=== PATIENT | female | born 2000 | race Caucasian/White ===

== ENCOUNTER 2022-06-15 15:28 | Observation (INO) ==
[2022-06-15 16:14] LABS: Basophils # (auto) 0.02 K/uL (0-0.2); Basophils % (auto) 0.2 %; Hematocrit (blood only) 33.1 % (37.0-47.0); Hemoglobin 10.9 g/dl (12.0-16.0); Immature Granulocytes # (auto) 0.03 K/uL (0.01-0.20); Immature Granulocytes % (auto) 0.3 %; Lymphocytes # (auto) 2.15 K/uL (1.2-3.4); Lymphocytes % (auto) 21.3 %; Mean Corpuscular Hemoglobin 29.9 pg (25.0-34.0); Mean Corpuscular Hgb Conc 32.9 g/dL (32.0-36.0); Mean Corpuscular Volume 90.7 fL (80.0-100.0); Mean Platelet Volume 9.3 fL (9.4-12.4); Monocytes # (auto) 0.89 K/uL (0.11-0.59); Monocytes % (auto) 8.8 %; Neutrophils # (auto) 6.99 K/uL (1.40-6.50); Neutrophils % (auto) 69.4 %; Platelet Count 260 K/uL (130-400); RDW Coefficient of Variation 13.6 % (11.5-14.5); RDW Standard Deviation 45.3 fL (36.4-46.3); Red Blood Count 3.65 M/uL (4.20-5.40); White Blood Count 10.08 K/ul (4.8-10.8)
[2022-06-15] MEDS ORDERED: AMPICILLIN/SULBACTAM SOD 3,000 MG in 0.9 % SODIUM CHLORIDE 100 ML IV STA (16:25)
[2022-06-15 16:29] LABS: BUN Creatinine Ratio 19.1 (10-20); Calcium 9.2 mg/dl (8.6-10.3); Creatinine Clr Calc Pharmacy 127.6 ml/min; Est GFR (African American) 145.9 ml/min; Est GFR (Non-African American) 125.9 ml/min; Potassium 4.3 mmol/L (3.5-5.1)
[2022-06-15] MEDS ORDERED: SODIUM CHLORIDE 0.9% 1000ML 1,000 ML IV SCH (16:34)
--- NOTE | 2022-06-15 16:34 | History & Physical Report ---
Date of Service June 15, 2022 Assessment & Plan (1) Odontogenic infection of jaw: Plan: 21-year-old female who presents with approximately 1 week of worsening right lower jaw pain, and inability to tolerate p.o. since last Thursday. She was seen by ENT who recommended extraction of wisdom teeth for odontogenic infection and medical admission pending surgery tomorrow. Pharyngitis, trismus, fever Patient presented with painful opening and closing of her right jaw, right mandibular swelling, and wisdom teeth eruption with severe pain and the inability to eat for 4 days. Based on high fevers and symptoms patient was initially recommended for tooth extraction and suspected periodontal abscess. CT as noted below. Shows evidence of nonspecific tonsillitis, no significant periodontal disease or abscess. With a high fever, inability to eat, and general malaise flu, Monospot, and rapid strep have been ordered. Patient requires inpatient admission for nutrition as she is volume depleted and I will be able to eat/drink at this time. Did discuss with OMFS and updated after CT resulted, agree with watching and steroids overnight due to significant swelling and following infectious work-up. OMFS will see in the morning and determine whether she should have teeth extraction at that time. CT: IMPRESSION: 1. No acute facial bone abnormality is identified. 2. No significant periodontal disease is seen. 3. Significant enlargement of the to nsils and adenoids with mild edema and mucosal hyperemia. Correlate clinically for evidence of a nonspecific tonsillitis. 4. Mildly enlarged cervical lymph nodes are likely reactive. Continue Unasyn pending completion of viral work-up Tylenol IV 1 g every 8 hours for pain/fever N.p.o. LR 120 cc/h IV FM No leukocytosis Clinically mildly volume depleted, but with normal creatinine on admission. Fluids continued as noted Up-to-date on vaccinations including Tdap for school DVT prophylaxis: Low risk, SCDs Diet: N.p.o. Disposition: Medical/surgical CODE STATUS: Full code History of Present Illness Primary Care Provider: [facility] Krystyna is a 21-year-old female with a past medical history of lactose intolerance who presents with dental pain. Dental pain starting thursday. Has not eaten or drinking since Thursday. R lower jaw is painful, top also hurts when she chews. Some hoarse voice. No wheezing. No shortness of breath. +Fevers, +night sweats. No cheast pain. +N/+V. Red streaked emesis. No bloody or black bowel movemnts. 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 Medical History: Reviewed Medications: Reviewed Surgical History: Reviewed Family history: Reviewed Allergies: Reviewed Social History: No tobacco use. Social alcohol use last Thursday. Social alcohol use without recent use Code Status: Full Code Allergies Allergy/AdvReac Type Severity Reaction Status Date / Time lactose AdvReac Intermediate Gastrointestinal Verified 06/15/22 16:59 Upset Home Medications Medication Instructions Recorded Confirmed Type No Known Home Medications 06/15/22 06/15/22 History Past Med/Surg History Medical History Lactose intolerance Surgical History No history of previous surgery Social History Smoking Status: Never smoker Preferred Language: Chilean Feels Safe at Home: Yes Review of Systems Review of Systems: All systems reviewed & are unremarkable except as noted in HPI & below Physical Exam Physical Exam: General: A&Ox3. NAD. Cooperative. HEENT: Mucous membranes dry but not cracked. Right mandibular swelling with radiation of pain back to the TMJ. No neck tenderness, uvula midline. Pupils equal and reactive to light. Extraocular movements intact. Vision/hearing grossly intact Pulm: CTAB A&P. -wheezes, -rales, -rhonchi. Symmetrical chest rise. No increased work of breathing. No respiratory distress. Cardiac: Regular, mildly tachycardic, -mrg. Radial pulses intact and symmetrical. Abdominal: Nontender, nondistended, soft. BS present. Extremities: Warm, dry. Moves all extremities equally. 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 Results & Data Results & Data Vital Signs (Past 12 Hours) Vital Signs Temp Pulse Resp BP Pulse Ox O2 Del Method 06/15/22 15:35 37.8 C H 119 H 20 108/68 97 Room Air PG Care Time/CCT Total # of Minutes Spent Total Time Spent with Patient: Total time spent is greater than 50% in coordination of care (as documented) at patient's floor/unit and/or counseling patient: Coding Level of Care Code 18686 INT INP/OBS CARE 2/55MIN Diagnoses Odontogenic infection of jaw M27.2
[2022-06-15] MEDS ORDERED: OPTIRAY 350 100ml IV ONE (16:45)
--- NOTE | 2022-06-15 17:02 | Emergency Department Note ---
History of Present Illness General Chief complaint: Dental/Oral Stated complaint: ORAL PAIN Time Seen by Provider: 06/15/22 15:45 History of Present Illness Maximum Pain Intensity: 6 This 21-year-old female with a history of lactose intolerance presents today for evaluation of facial swelling and dental pain. She states she has had dental pain for the last week. It became significantly worse 4 days ago. She has been unable to eat anything significant for the last 4 days. She was able to drink, but now states that even that hurts her teeth. Pain is bilateral. She believes she needs her wisdom teeth out. She notes foul-smelling breath over the last few days. She has had chills and sweats. She is unsure if she has had a fever. She denies any significant sore throat. No cough or ear pain. She has bilateral jaw pain when opening it more than a moderate amount. No chest pain or shortness of breath. No other treatment. Home Medications Medication Instructions Recorded Confirmed Type No Known Home Medications 06/15/22 06/15/22 History Allergies Allergy/AdvReac Type Severity Reaction Status Date / Time lactose AdvReac Intermediate Gastrointestinal Verified 06/15/22 16:59 Upset Past Med/Surg History Medical History Lactose intolerance Surgical History No history of previous surgery Social History (Updated 06/15/22 @ 19:13 by Ed Marks PA-C) Smoking Status: Never smoker Preferred Language: Bruneian Hearing Ability: Normal marital status: Single current occupational status: student Feels Safe at Home: Yes Review of Systems A total of 10 systems reviewed and were otherwise negative Physical Exam Vital Signs Vital Signs - 24 hr 06/15/22 15:35 06/15/22 18:39 Temperature 37.8 C H Temperature Source Temporal Artery Scan Pulse Rate 119 H Pulse Rate [Apical] 74 Respiratory Rate 20 18 Respiratory Depth Normal Blood Pressure 108/68 Blood Pressure [Left Arm] 97/65 L Blood Pressure Mean 81 Blood Pressure Mean [Left Arm] 75 Blood Pressure Position Sitting Pulse Oximetry 97 98 Oxygen Delivery Method Room Air Room Air Sepsis Recent Fever Within 48 Hours Yes Sepsis New/Unexplained Change in Mental Status No Sepsis Action Taken by Nursing No Action Required General: Well-developed, well-nourished, young female, in obvious discomfort. No acute distress. Sitting on the bed. Alert and oriented. She is not drooling. There is a foul smell upon entering the room. Skin: Warm and dry with good turgor. No rashes or lesions. No ecchymosis or erythema. She has visible edema present on both sides of the mandible at the angle of the jaw. HEENT: Normocephalic atraumatic. Eyes PERRLA, EOMI. No conjunctiva or scleral injection. Ears TMs intact bilaterally with good light reflexes. No erythema or bulging. No hemotympanum. Canals are patent. Nares patent bilaterally without turbinate enlargement. No significant drainage. No epistaxis. Oropharynx has foul-smelling breath. She has erupting wisdom teeth visible on the mandible. There is purulent drainage coming from around the right wisdom tooth. She appears to have some edematous necrotic tissue around the left wisdom tooth as well. Uvula midline, oral mucosa mildly dry. No enlargement of her uvula. Tonsils are mild to moderately enlarged as well.. No lesions present. Lymphatics are palpated with anterior chain enlargement and tenderness, worse on the right. No posterior chain enlargement or tenderness. Heart: Tachycardic. Regular rhythm. No MGR. Lungs: Lungs are clear to auscultation. No crackles rhonchi or wheezing. Good air movement. The patient is able to take a deep breath. Musculoskeletal: Gross motor function of the upper and lower extremities is intact and unremarkable. Course Administered Medications Dexamethasone 6 mg/ Syringe 1.5 mls @ 1 mls/min IV Q24H WALESKA Stop: 07/15/22 18:14 Last Admin: 06/15/22 19:23 Dose: 1 mls/min Documented By: KMF Discontinued Medications Ampicillin Sodium/Sulbactam Sodium 3,000 mg/ Sodium Chloride 108 mls @ 200 mls/hr IV NOW STA; Protocol Stop: 06/15/22 16:57 Last Admin: 06/15/22 18:37 Dose: 200 mls/hr Documented By: OL Sodium Chloride (Nss 1000ml) 1,000 mls @ 999 mls/hr IV .Q1H1M WALESKA Stop: 06/15/22 17:34 Last Infusion: 06/15/22 17:58 Dose: 0 mls/hr Documented By: Admin: 06/15/22 16:53 Dose: 999 mls/hr Documented By: HEYDI Ioversol (Optiray 350 100ml) 87 ml IV ONCE ONE Stop: 06/15/22 16:46 Last Admin: 06/15/22 16:45 Dose: 87 ml Documented By: BRET Medical Decision Making Differential Diagnosis Dental abscess, erupting wisdom teeth, pharyngitis, oral thrush, tonsillitis. Home Medications Current Medication List: was personally reviewed by me Laboratory Data CBC obtained today shows a normal white count at 10.08. H&H of 10.9 and 33.1. BMP is entirely unremarkable. Normal electrolytes. Normal kidney function. COVID test obtained today is negative. 06/15/22 16:00 06/15/22 16:00 Lab Results 06/15/22 06/15/22 06/15/22 Range/Units 16:00 16:00 16:55 WBC 10.08 (4.8-10.8) K/ul RBC 3.65 L (4.20-5.40) M/uL Hgb 10.9 L (12.0-16.0) g/dl Hct 33.1 L (37.0-47.0) % MCV 90.7 (80.0-100.0) fL MCH 29.9 (25.0-34.0) pg MCHC 32.9 (32.0-36.0) g/dL RDW Std Deviation 45.3 (36.4-46.3) fL RDW Coeff of Sade 13.6 (11.5-14.5) % Plt Count 260 (130-400) K/uL MPV 9.3 L (9.4-12.4) fL Immature Gran % (Auto) 0.3 % Neut % (Auto) 69.4 % Lymph % (Auto) 21.3 % Cooper % (Auto) 8.8 % Eos % (Auto) 0.0 % Baso % (Auto) 0.2 % Neut # (Auto) 6.99 H (1.40-6.50) K/uL Lymph # (Auto) 2.15 (1.2-3.4) K/uL Cooper # (Auto) 0.89 H (0.11-0.59) K/uL Eos # (Auto) 0.00 (0-0.50) K/uL Baso # (Auto) 0.02 (0-0.2) K/uL Immature Gran # (Auto) 0.03 (0.01-0.20) K/uL Sodium 137 (136-145) mmol/L Potassium 4.3 (3.5-5.1) mmol/L Chloride 99 (98-107) mmol/L Carbon Dioxide 27 (21-32) mmol/L Anion Gap 11 (3-11) BUN 13 (6-23) mg/dl Creatinine 0.68 (0.6-1.2) mg/dl Est Cr Clr Drug Dosing 127.6 ml/min Est GFR ( Amer) 145.9 ml/min Est GFR (Non-Af Amer) 125.9 ml/min BUN/Creatinine Ratio 19.1 (10-20) Glucose 83 (70-99(Fasting)) mg/dl Calcium 9.2 (8.6-10.3) mg/dl SARS-CoV-2 (PCR) (Negative) Influenza Type A (PCR) (Neg) Influenza Type B (PCR) (Neg) RSV (RT-PCR) (Neg) SARS-CoV-2, RNA, NAAT NEGATIVE (NEGATIVE) 06/15/22 Range/Units 18:20 WBC (4.8-10.8) K/ul RBC (4.20-5.40) M/uL Hgb (12.0-16.0) g/dl Hct (37.0-47.0) % MCV (80.0-100.0) fL MCH (25.0-34.0) pg MCHC (32.0-36.0) g/dL RDW Std Deviation (36.4-46.3) fL RDW Coeff of Sade (11.5-14.5) % Plt Count (130-400) K/uL MPV (9.4-12.4) fL Immature Gran % (Auto) % Neut % (Auto) % Lymph % (Auto) % Cooper % (Auto) % Eos % (Auto) % Baso % (Auto) % Neut # (Auto) (1.40-6.50) K/uL Lymph # (Auto) (1.2-3.4) K/uL Cooper # (Auto) (0.11-0.59) K/uL Eos # (Auto) (0-0.50) K/uL Baso # (Auto) (0-0.2) K/uL Immature Gran # (Auto) (0.01-0.20) K/uL Sodium (136-145) mmol/L Potassium (3.5-5.1) mmol/L Chloride (98-107) mmol/L Carbon Dioxide (21-32) mmol/L Anion Gap (3-11) BUN (6-23) mg/dl Creatinine (0.6-1.2) mg/dl Est Cr Clr Drug Dosing ml/min Est GFR ( Amer) ml/min Est GFR (Non-Af Amer) ml/min BUN/Creatinine Ratio (10-20) Glucose (70-99(Fasting)) mg/dl Calcium (8.6-10.3) mg/dl SARS-CoV-2 (PCR) NEGATIVE (Negative) Influenza Type A (PCR) Negative (Neg) Influenza Type B (PCR) Negative (Neg) RSV (RT-PCR) Negative (Neg) SARS-CoV-2, RNA, NAAT (NEGATIVE) Imaging Data My Impression: CT scan imaging of the facial bones with IV contrast was obtained to rule out dental abscess. This was interpreted by me and read by radiology. No significant periodontal disease is noted. There is enlargement of the tonsils and adenoids with mild edema. Possibility of tonsillitis exist. Lymph node enlargement is noted. Radiologist's Impression: Face CT 06/15/22 16:18 CT SCAN OF THE FACIAL BONES WITH IV CONTRAST CLINICAL HISTORY: Periodontal infection. COMPARISON STUDY: No priors. TECHNIQUE: High-resolution CT scan of the facial bones is performed following the administration of 87 cc of Optiray 350. Images are reviewed in the axial, sagittal, and coronal planes. IV contrast was administered without complication. A dose lowering technique was utilized adhering to the principles of ALARA. CT DOSE: 682.57 mGy.cm FINDINGS: The skeletal structures are well mineralized. There is no evidence of facial bone fracture. The bony orbits are intact and the orbital contents are within normal limits. The zygomatic arches, nasal bones, and pterygoid plates are preserved. The maxilla and mandible are intact. There are no layering blood products within the paranasal sinuses. There is mild mucosal thickening within the maxillary antra in the right frontal sinus. Moderate mucosal thickening is seen within the right sphenoid sinus and the ethmoid sinuses. There is trace mucosal thickening in the left sphenoid sinus. There is trace left mastoid effusion. The visualized calvarium and upper cervical spine are maintained. Partially imaged brain parenchyma is within normal limits. No significant periodontal disease is identified. There is significant enlargement of the tonsils and adenoids with mild edema and mucosal hyperemia. This mildly effaces the ventral adjacent airway. No peritonsillar abscess is seen. There are erika us mildly enlarged cervical chain lymph nodes which may be reactive. These measure up to 2 cm in length. IMPRESSION: 1. No acute facial bone abnormality is identified. 2. No significant periodontal disease is seen. 3. Significant enlargement of the tonsils and adenoids with mild edema and mucosal hyperemia. Correlate clinically for evidence of a nonspecific tonsillitis. 4. Mildly enlarged cervical lymph nodes are likely reactive. ACT 112: Negative or not required by law. Electronically signed by: Madi Putnam M.D. 06/15/2022 5:55 PM Blood Pressure Blood Pressure Findings: Normal blood pressure MDM Narrative The patient was evaluated in room B9. Conservative care measures were discussed. IV was established. Labs were obtained. I did speak with Dr. Mitchell from [facility], who recommended CT scan of the dental region. CT scan of the facial bones with IV contrast was obtained. This did not show any abscess, but did show possibility of tonsillitis. Given her physical exam with tachycardia, inability to eat, limited fluid intake, fever, and dental presentation, admission was discussed. The patient is in agreement. Dr. Mitchell will review the imaging and evaluate the patient in the morning to determine whether wisdom tooth extraction is appropriate. Hospitalist consultation was obtained for admission. Please see that dictation for final management. The patient remained stable while in the ED. She was given Unasyn 3 g IV as well as hydrated with 1 L normal sterile saline IV bolus. I did offer to speak with her mother regarding today's findings and admission. She stated that she would notify her mother herself. Impression & Plan Odontogenic infection of jaw Admission with [facility] [place] in the morning for possible surgical intervention. She will be made n.p.o. after midnight. Discharge Plan Visit Data Chief Complaint: Dental/Oral Stated Complaint: ORAL PAIN ED Provider: Diogenes [facility] ED Midlevel Provider: Ed Marks Discharge Problem: Odontogenic infection of jaw Forms Stand Alone Forms: My Survata Prescriptions Prescriptions: No Action No Known Home Medications Referrals Referrals: [facility] [Primary Care Provider] -
--- NOTE | 2022-06-15 17:57 | CT Scan Report ---
CT SCAN OF THE FACIAL BONES WITH IV CONTRAST CLINICAL HISTORY: Periodontal infection. COMPARISON STUDY: No priors. TECHNIQUE: High-resolution CT scan of the facial bones is performed following the administration of 87 cc of Optiray 350. Images are reviewed in the axial, sagittal, and coronal planes. IV contrast was administered without complication. A dose lowering technique was utilized adhering to the principle s of ALARA. CT DOSE: 682.57 mGy.cm FINDINGS: The skeletal structures are well mineralized. There is no evidence of facial bone fracture. The bony orbits are intact and the orbital contents are within normal limits. The zygomatic arches, nasal bones, and pterygoid plates are preserved. The maxilla and mandible are intact. There are no la yering blood products within the paranasal sinuses. There is mild mucosal thickening within the maxil priscilla antra in the right frontal sinus. Moderate mucosal thickening is seen within the right sphenoid sinus and the ethmoid sinuses. There is trace mucosal thickening in the left sphenoid sinus. There is trace left mastoid effusion. The visualized calvarium and upper cervical spine are maintained. Parti ally imaged brain parenchyma is within normal limits. No significant periodontal disease is identifie d. There is significant enlargement of the tonsils and adenoids with mild edema and mucosal hyperemia . This mildly effaces the ventral adjacent airway. No peritonsillar abscess is seen. There are erika us mildly enlarged cervical chain lymph nodes which may be reactive. These measure up to 2 cm in willis th. IMPRESSION: 1. No acute facial bone abnormality is identified. 2. No significant periodontal disease is seen. 3. Significant enlargement of the tonsils and adenoids with mild edema and mucosal hyperemia. Correla te clinically for evidence of a nonspecific tonsillitis. 4. Mildly enlarged cervical lymph nodes are likely reactive. ACT 112: Negative or not required by law. Electronically signed by: Madi Putnam M.D. 06/15/2022 5:55 PM
[2022-06-15 19:08] LABS: Influenza A virus by PCR Negative (Neg); Influenza B virus by PCR Negative (Neg); RSV by PCR Negative (Neg); SARS CoV2 RNA(COVID-19) Ceph NEGATIVE (Negative)
[2022-06-15] MEDS: dexAMETHasone 6 MG in SYRINGE 0 ML IV SCH (19:23)
[2022-06-15] MEDS: LACTATED RINGER'S 1,000 ML IV SCH (19:57)
[2022-06-15] MEDS: ACETAMINOPHEN 1,000 MG/100 ML VIAL IV PRN (21:02)
[2022-06-15] MEDS: AMPICILLIN/SULBACTAM SOD 3,000 MG in 0.9 % SODIUM CHLORIDE 100 ML IV SCH (23:58)
[2022-06-16] MEDS: LACTATED RINGER'S 1,000 ML IV SCH ×3 (04:10→13:30)
[2022-06-16] MEDS: AMPICILLIN/SULBACTAM SOD 3,000 MG in 0.9 % SODIUM CHLORIDE 100 ML IV SCH ×3 (07:45→18:19)
[2022-06-16 08:55] LABS: Basophils # (auto) 0.01 K/uL (0-0.2); Basophils % (auto) 0.2 %; Hematocrit (blood only) 34.1 % (37.0-47.0); Hemoglobin 11.4 g/dl (12.0-16.0); Immature Granulocytes # (auto) 0.02 K/uL (0.01-0.20); Immature Granulocytes % (auto) 0.3 %; Lymphocytes # (auto) 1.55 K/uL (1.2-3.4); Mean Corpuscular Hemoglobin 29.9 pg (25.0-34.0); Mean Corpuscular Hgb Conc 33.4 g/dL (32.0-36.0); Mean Corpuscular Volume 89.5 fL (80.0-100.0); Mean Platelet Volume 9.6 fL (9.4-12.4); Monocytes # (auto) 0.21 K/uL (0.11-0.59); Monocytes % (auto) 3.2 %; Neutrophils # (auto) 4.68 K/uL (1.40-6.50); Neutrophils % (auto) 72.3 %; Platelet Count 236 K/uL (130-400); RDW Coefficient of Variation 13.6 % (11.5-14.5); RDW Standard Deviation 44.9 fL (36.4-46.3); Red Blood Count 3.81 M/uL (4.20-5.40); White Blood Count 6.47 K/ul (4.8-10.8)
[2022-06-16] MEDS: ACETAMINOPHEN 1,000 MG/100 ML VIAL IV PRN (09:04)
[2022-06-16 10:18] LABS: Anion Gap 11 (3-11); BUN Creatinine Ratio 31.1 (10-20); Blood Urea Nitrogen 14 mg/dl (6-23); C Reactive Protein 18.31 mg/dl (0-0.5); Calcium 9.2 mg/dl (8.6-10.3); Carbon Dioxide 26 mmol/L (21-32); Chloride 102 mmol/L (98-107); Creatinine Clr Calc Pharmacy 152.1 ml/min; Est GFR (African American) > 150.0 ml/min; Est GFR (Non-African American) 144.2 ml/min; Glucose 103 mg/dl (70-99(Fasting)); Potassium 4.4 mmol/L (3.5-5.1); Sodium 139 mmol/L (136-145)
--- NOTE | 2022-06-16 10:46 | Oral/Maxillofacial Consult ---
Date of Consultation June 16, 2022 Assessment & Plan (1) Odontogenic infection of jaw: (2) Impacted teeth with abnormal position: (3) Gum abscess: History of Present Illness Attending Physician: Roc Aguilar MD History of Present Illness Oral Maxillofacial Surgery Exam Present Complaint: I have pain/swelling/drainage from my infected wisdom teeth. Symptoms have been ongoing for a while. I can not swallow Pain and swelling and stiff jaw Oral Exam: Finding--P-cor associated with the impacted teeth, tender gingival tissue with deep pocket formation.Teeth are in an abnormal position and removal is clinical indicated. Imaging: CT SCAN OF THE FACIAL BONES WITH IV CONTRAST CLINICAL HISTORY: Periodontal infection. FINDINGS: The skeletal structures are well mineralized. There is no evidence of facial bone fracture. The bony orbits are intact and the orbital contents are within normal limits. The zygomatic arches, nasal bones, and pterygoid plates are preserved. The maxilla and mandible are intact. There are no layering blood products within the paranasal sinuses. There is mild mucosal thickening within the maxillary antra in the right frontal sinus. Moderate mucosal thickening is seen within the right sphenoid sinus and the ethmoid sinuses. There is trace mucosal thickening in the left sphenoid sinus. There is trace left mastoid effusion. The visualized calvarium and upper cervical spine are maintained. Partially imaged brain parenchyma is within normal limits. No significant periodontal disease is identified. There is significant enlargement of the tonsils and adenoids with mild edema and mucosal hyperemia. This mildly effaces the ventral adjacent airway. No peritonsillar abscess is seen. There are numerous mildly enlarged cervical chain lymph nodes which may be reactive. These measure up to 2 cm in length. IMPRESSION: 1. No acute facial bone abnormality is identified. 2. No significant periodontal disease is seen. 3. Significant enlargement of the tonsils and adenoids with mild edema and mucosal hyperemia. Correlate clinically for evidence of a nonspecific tonsillitis. I personally reviewed the CT scan was there were no abnormal findings other then the impacted/malposed wisdom teeth with a severe soft tissue reaction. The TMJ are well positioned and no evidence of bony pathology. The sinus, supporting bone all WNL Evaluated the nerve/sinus relationship to the roots of the teeth. The following teeth were impacted #17,32 The following teeth were malposed and super erupted # 1,16 Soft tissue: floor of the mouth, tongue, hard palate, tonsils and posterior pharyngeal slightly enlarged and inflamed No evidence of BELLPERSON or abscess in Tonsils Oral Care: Overall oral care is good except for the acute infection associated with the wisdom teeth Occlusion: Class I TMJ exam: Not able to exam secondary to limited opening Periodontal exam: Healthy gingival tissue without evidence of periodontal pathology. Noted the P-Cor nd acute gingival swelling associated with the lower impacted wisdom teeth Head/Neck exam: Neck is tender, tender submandibular area and swollen lymph nodes. Neck is supple, FROM, Able to extend and flex neck w/o difficulty, no masses, no abnormalities, no airway issues, no evidence of sleep apnea. Treatment Plan: Will need to get medical clearance from medical to insure all electrolytes are WNL for pending general anesthesia. Also noted positive [place] spot test Set up with general anesthesia in hospital due to complexity of the procedure I reviewed the treatment plan and consent with the patient. Understanding was expressed. Time was given for questions regarding the surgery, risks and post op care. Discussed alternative to treatment--procedure as planned, Do not do surgery The wisdom teeth are impacted and in an abnormal position, removal is indicated and medically necessary. Risks discussed: Bleeding,Pain,swelling,infection, dry socket, delayed healing, nerve injury to face,lips,tongue,chin area which could be permanent (rare). TMJ, jaw stiffness, change in bite (rare), ear pain (referred). Sinus problems like fistula or infection. Need to leave a small root fragment in place to avoid injury to nerve or sinus. Relationship of wisdom teeth to nerve/sinus and risk of jaw fracture. Home care reviewed: tooth brushing, rinsing, follow up care with Dr Mitchell. diet=[id number] dental. Discussed activity level, driving/work while on Rx pain Meds. Surgery to be set up once medical cleared for surgery Allergies Allergy/AdvReac Type Severity Reaction Status Date / Time lactose AdvReac Intermediate Gastrointestinal Verified 06/15/22 16:59 Upset Home Medications Medication Instructions Recorded Confirmed Type No Known Home Medications 06/15/22 06/15/22 History Patient History Medical History Lactose intolerance Surgical History No history of previous surgery Social History (Updated 06/15/22 @ 19:13 by Ed Marks PA-C) Smoking Status: Never smoker Second Hand Exposure: No; Do You Dip or Chew Tobacco: No; Tobacco Cessation Education Requested by Patient: No Hx Alcohol Use: Yes Alcohol type: beer Hx Substance Use: No Preferred Language: Turkish Communication Ability: Effective Hearing Ability: Normal Smart Energy Specialist Required: No Beliefs That Will Affect Care: None marital status: Single Current Living Situation: Other Current Living Situation Comment: dorm room current occupational status: student Other Information That Helps Us Care for You: No Feels Safe at Home: Yes Safety Concerns: Feels Safe At This Time Assistive Devices: None Results & Data Vital Signs (Past 12 Hours) Vital Signs Temp Pulse Resp BP Pulse Ox O2 Del Method 06/16/22 07:53 36.7 C 78 18 97/63 L 97 Room Air PG Care Time/CCT Total # of Minutes Spent Total Time Spent with Patient: Total time spent is greater than 50% in coordination of care (as documented) at patient's floor/unit and/or counseling patient: Coding Level of Care Code 14618 IN/OBS CONSULT LVL 2,35M Diagnoses Odontogenic infection of jaw M27.2 Impacted teeth with abnormal position K01.1 Gum abscess K05.219
[2022-06-16] MEDS ORDERED: KETOROLAC TROMETHAMINE 15 MG/ML VIAL IV PRN (14:08)
[2022-06-16] MEDS ORDERED: CHLORHEXIDINE GLUCONATE 0.12% 480 ML MT ONE (15:12)
[2022-06-16] MEDS ORDERED: BUPIVACAINE/EPINEPHRINE 0.5% 1:200,000 1.8 ML CARP ONE (15:12)
[2022-06-16] MEDS ORDERED: GLYCOPYRROLATE 0.2 MG/ML VIAL ONE (15:19)
[2022-06-16] MEDS ORDERED: PROPOFOL IV EMULSION 10 MG/ML 20 ML VIAL IV ONE (15:19)
[2022-06-16] MEDS ORDERED: NEOSTIGMINE METHYLSULFATE 1 MG/ML 10ML VIAL ONE (15:19)
[2022-06-16] MEDS ORDERED: MIDAZOLAM HCL 1 MG/ML 2ML VIAL ONE (15:19)
[2022-06-16] MEDS ORDERED: ROCURONIUM BROMIDE 10 MG/ML 5 ML VIAL IV ONE (15:19)
[2022-06-16] MEDS ORDERED: ONDANSETRON INJ 2 MG/ML 2 ML VIAL ONE (15:19)
[2022-06-16] MEDS ORDERED: LIDOCAINE 2% MPF LOCAL 5 ML VIAL ONE (15:19)
[2022-06-16] MEDS ORDERED: DEXAMETHASONE SOD INJ 4 MG/ML VIAL ONE (15:19)
--- NOTE | 2022-06-16 15:19 | Anesthesiology Consultation ---
Date of Service June 16, 2022 Assessment & Plan (1) Encounter for pre-operative examination: Chart Review Chart Review: Acceptable Risk for Surgery ( test pending) History Surgery Operation Date: 06/16/22 12:20 Proposed Procedures p Incision and Drainage Infection - Parmjit Mitchell DMD s Possible Removal of [place] Teeth - Parmjit Mitchell DMD Height/Weight Height: 5 ft 2 in Weight: 48.308 kg Allergies Allergy/AdvReac Type Severity Reaction Status Date / Time lactose AdvReac Intermediate Gastrointestinal Verified 06/15/22 16:59 Upset Medications Home Medications Medication Instructions Recorded Confirmed Last Taken No Known Home Medications 06/15/22 06/15/22 Unknown Active Medications Generic Name Dose Route Start Last Admin Trade Name Freq PRN Reason Stop Dose Admin Acetaminophen 1,000 mg in 100 mls @ 400 mls/hr 06/15/22 16:42 06/16/22 09:22 Ofirmev IV 06/18/22 16:41 Infused Q8H PRN Infusion pain/fever Lactated Ringer's 1,000 mls @ 125 mls/hr 06/15/22 17:00 06/16/22 13:30 Lr IV 07/15/22 16:59 125 mls/hr .Q8H WALESKA Administration Dexamethasone 6 mg/ Syringe 1.5 mls @ 1 mls/min 06/15/22 18:15 06/15/22 19:23 IV 07/15/22 18:14 1 mls/min Q24H WALESKA Administration Ampicillin Sodium/Sulbactam 108 mls @ 200 mls/hr 06/16/22 00:00 06/16/22 12:17 Sodium 3,000 mg/ Sodium IV 06/23/22 00:00 Infused Chloride Q6H WALESKA Infusion Protocol Ketorolac Tromethamine 15 mg 06/16/22 14:08 06/16/22 14:28 Ketorolac Tromethamine 15 Mg/Ml Vial IV 06/21/22 14:07 15 mg Q6H PRN Administration Severe Pain (Scale 7, 8, 9,10) NPO Date Last Intake of Fluids: 06/14/22 Time Last Intake of Fluids: 08:00 Date Last Intake of Solids: 06/14/22 Time Last Intake of Solids: 08:00 Past Medical History Medical History Lactose intolerance Past Surgical History Surgical History No history of previous surgery Social History Smoking Status: Never smoker Do You Dip or Chew Tobacco: No Hx Alcohol Use: Yes Alcohol type: beer alcohol intake frequency: holidays/special occasions only Hx Substance Use: No substance use type: does not use Physical Exam Vital Signs Last Vital Signs Temp 36.7 C 06/16/22 07:53 Pulse 78 06/16/22 07:53 Resp 18 06/16/22 07:53 BP 97/63 L 06/16/22 07:53 Pulse Ox 97 06/16/22 07:53 O2 Del Method Room Air 06/16/22 07:53 Testing Laboratory Results 06/16/22 07:31 06/16/22 07:31
[2022-06-16] MEDS ORDERED: fentaNYL citrate PF 100 MCG/2 ML VIAL ONE (15:20)
--- NOTE | 2022-06-16 15:36 | History & Physical Bridge Note ---
Date of Service June 16, 2022 History & Physical Bridge Note I have examined the patient, reviewed the History & Physical and in the interval since the performance of the History & Physical I have noted the following changes of clinical significance: no changes noted. OK for the surgery this afternoon pending serum testing. Pain is still very intense and removal of the infected teeth are medically necessary. Plan --continues IV antibiotics and fluids then I will evaluate in AM for hopefully discharge
[2022-06-16] MEDS ORDERED: ATROPINE SULFATE 0.1 MG/ML 10ML SYR IV PRN (15:49)
[2022-06-16] MEDS ORDERED: PROMETHAZINE HCL 6.25 MG in SODIUM CHLORIDE 0.9% 50 ML IV PRN (15:49)
[2022-06-16] MEDS ORDERED: fentaNYL citrate PF 100 MCG/2 ML VIAL IV PRN (15:49)
[2022-06-16] MEDS ORDERED: ONDANSETRON INJ 2 MG/ML 2 ML VIAL IV PRN ×2 (15:49→16:55)
[2022-06-16 16:13] LABS: Pregnancy Test, Serum Negative (Negative)
[2022-06-16] MEDS ORDERED: ACETAMINOPHEN 500 MG TAB PO PRN (16:55)
[2022-06-16] MEDS ORDERED: MoRPHine SULFATE 2 MG/ML CARP IV PRN (16:55)
[2022-06-16] MEDS ORDERED: KETOROLAC 30 MG/ML VIAL IV PRN (16:55)
--- NOTE | 2022-06-16 17:19 | Hospitalist Progress Note ---
Date of Service June 16, 2022 Assessment & Plan (1) Odontogenic infection of jaw: Plan: 21-year-old female who presents with approximately 1 week of worsening right lower jaw pain, and inability to tolerate p.o. since last Thursday. She was seen by ENT who recommended extraction of wisdom teeth for odontogenic infection and medical admission pending surgery tomorrow. Pharyngitis, trismus, fever Patient presented with painful opening and closing of her right jaw, right mandibular swelling, and wisdom teeth eruption with severe pain and the inability to eat for 4 days. Based on high fevers and symptoms patient was initially recommended for tooth extraction and suspected periodontal abscess. CT as noted below. Shows evidence of nonspecific tonsillitis, no significant periodontal disease or abscess. With a high fever, inability to eat, and general malaise flu, Monospot, and rapid strep have been ordered. Monospot test came back positive. See below. Oral maxillofacial surgery on board. Planning to take her to the OR today. Continue IV fluids. Continue Unasyn Continue Tylenol Noticed that morphine was added by oral maxillofacial surgery Toradol discontinued in anticipation for surgery DVT prophylaxis: Low risk, SCDs Diet: N.p.o. Disposition: Medical/surgical CODE STATUS: Full code (2) Infectious mononucleosis due to Tyler-Garza virus (EBV): Plan: Monospot positive Supportive treatment with Tylenol, fluids Plan Spoke to mother on the phone Cleared the patient for surgery Admission and Anticipated Discharge Date Admission Date: June 15, 2022 Subjective Patient is hoping that she will have surgery today. Review of Systems Review of Systems: All systems reviewed & are unremarkable except as noted in Subjective Physical Exam Physical Exam: General: Awake, conversant Heart: S1, S2/regular rate and rhythm, no murmur rubs or gallops Lungs: Clear to auscultation bilaterally. Normal effort Abdomen: Soft/nontender/nondistended. No hepatosplenomegaly Extremities: No clubbing/cyanosis. No edema Behavior: Appropriate, cooperative Results & Data Results & Data Vital Signs (Past 12 Hours) Vital Signs Temp Pulse Resp BP Pulse Ox O2 Del Method 06/16/22 15:18 37.0 C 78 16 103/62 99 Room Air 06/16/22 07:53 36.7 C 78 18 97/63 L 97 Room Air Laboratory Results Abnormal lab results 06/15/22 06/16/2206/16/23 Range/Units 19:08 07:31 07:31 RBC 3.81 L (4.20-5.40) M/uL Hgb 11.4 L (12.0-16.0) g/dl Hct 34.1 L (37.0-47.0) % Creatinine 0.45 L (0.6-1.2) mg/dl BUN/Creatinine Ratio 31.1 H (10-20) Glucose 103 H (70-99(Fasting)) mg/dl C-Reactive Protein 18.31 H (0-0.5) mg/dl Monoscreen Positive A (Negative) Diagnostic Findings Face CT 06/15/22 16:18 CT SCAN OF THE FACIAL BONES WITH IV CONTRAST CLINICAL HISTORY: Periodontal infection. COMPARISON STUDY: No priors. TECHNIQUE: High-resolution CT scan of the facial bones is performed following the administration of 87 cc of Optiray 350. Images are reviewed in the axial, sagittal, and coronal planes. IV contrast was administered without complication. A dose lowering technique was utilized adhering to the principles of ALARA. CT DOSE: 682.57 mGy.cm FINDINGS: The skeletal structures are well mineralized. There is no evidence of facial bone fracture. The bony orbits are intact and the orbital contents are within normal limits. The zygomatic arches, nasal bones, and pterygoid plates are preserved. The maxilla and mandible are intact. There are no layering blood products within the paranasal sinuses. There is mild mucosal thickening within the maxillary antra in the right frontal sinus. Moderate mucosal thickening is seen within the right sphenoid sinus and the ethmoid sinuses. There is trace muc osal thickening in the left sphenoid sinus. There is trace left mastoid effusion. The visualized calvarium and upper cervical spine are maintained. Partially imaged brain parenchyma is within normal limits. No significant periodontal disease is identified. There is significant enlargement of the tonsils and adenoids with mild edema and mucosal hyperemia. This mildly effaces the ventral adjacent airway. No peritonsillar abscess is seen. There are numerous mildly enlarged cervical chain lymph nodes which may be reactive. These measure up to 2 cm in length. IMPRESSION: 1. No acute facial bone abnormality is identified. 2. No significant periodontal disease is seen. 3. Significant enlargement of the tonsils and adenoids with mild edema and mucosal hyperemia. Correlate clinically for evidence of a nonspecific tonsillitis. 4. Mildly enlarged cervical lymph nodes are likely reactive. ACT 112: Negative or not required by law. Electronically signed by: Madi Putnam M.D. 06/15/2022 5:55 PM PG Care Time/CCT Total # of Minutes Spent Total Time Spent with Patient: Total time spent is greater than 50% in coordination of care (as documented) at patient's floor/unit and/or counseling patient: Coding Level of Care Code 36496 SUB INP/OBS CARE 2/35MIN Diagnoses Odontogenic infection of jaw M27.2 Infectious mononucleosis due to Tyler-Garza virus (EBV) B27.00
--- NOTE | 2022-06-16 17:37 | Anesthesiology Progress Note ---
Date of Service June 16, 2022 Anesthesia Post Procedure Vital Signs Vital Signs: Temp Pulse Pulse Pulse Resp BP BP 06/16/22 17:30 36.5 C 86 17 06/16/22 17:20 74 17 06/16/22 17:10 79 19 06/16/22 17:00 36.6 C 121 H 18 06/16/22 15:18 37.0 C 78 16 103/62 06/16/22 07:53 36.7 C 78 18 97/63 L 06/15/22 20:28 37.7 C H 107 H 18 97/65 L 06/15/22 19:52 106 H 16 88/47 L 06/15/22 18:39 74 18 97/65 L BP Pulse Ox O2 Del Method O2 Flow Rate 06/16/22 17:30 103/64 97 Room Air 06/16/22 17:20 100/53 L 97 Room Air 06/16/22 17:10 97/56 L 99 Nasal Cannula 2 06/16/22 17:00 104/67 100 Nasal Cannula 2 06/16/22 15:18 99 Room Air 06/16/22 07:53 97 Room Air 06/15/22 20:28 99 Room Air 06/15/22 19:52 97 Room Air 06/15/22 18:39 98 Room Air Pain Intensity Jaw: Pain Intensity: 5 Transfer of Care Handoff Completed per policy Notes Mental Status: alert / awake / arousable Patient Amnestic to Procedure: Yes Nausea / Vomiting: adequately controlled Pain: adequately controlled Airway Patency, RR, SpO2: stable & adequate BP & HR: stable & adequate Hydration State: stable & adequate Anesthetic Complications: no major complications apparent
[2022-06-16] MEDS: dexAMETHasone 6 MG in SYRINGE 0 ML IV SCH (18:19)
[2022-06-17] MEDS: AMPICILLIN/SULBACTAM SOD 3,000 MG in 0.9 % SODIUM CHLORIDE 100 ML IV SCH ×3 (00:10→14:27)
[2022-06-17] MEDS: LACTATED RINGER'S 1,000 ML IV SCH ×2 (02:10→11:33)
[2022-06-17] MEDS: oxyCODONE HCL IR 5 MG TAB (IMMEDIATE RELEASE) PO PRN ×3 (04:35→14:23)
--- NOTE | 2022-06-17 12:42 | Discharge Summary ---
Date of Service June 17, 2022 Admission HPI Per Admitting Provider Krystyna is a 21-year-old female with a past medical history of lactose intolerance who presents with dental pain. Dental pain starting thursday. Has not eaten or drinking since Thursday. R lower jaw is painful, top also hurts when she chews. Some hoarse voice. No wheezing. No shortness of breath. +Fevers, +night sweats. No cheast pain. +N/+V. Red streaked emesis. No bloody or black bowel movemnts. 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 Medical History: Reviewed Medications: Reviewed Surgical History: Reviewed Family history: Reviewed Allergies: Reviewed Social History: No tobacco use. Social alcohol use last Thursday. Social alcohol use without recent use Code Status: Full Code Admission Exam Per Admitting Provider General: A&Ox3. NAD. Cooperative. HEENT: Mucous membranes dry but not cracked. Right mandibular swelling with radiation of pain back to the TMJ. No neck tenderness, uvula midline. Pupils equal and reactive to light. Extraocular movements intact. Vision/hearing grossly intact Pulm: CTAB A&P. -wheezes, -rales, -rhonchi. Symmetrical chest rise. No increased work of breathing. No respiratory distress. Cardiac: Regular, mildly tachycardic, -mrg. Radial pulses intact and symmetrical. Abdominal: Nontender, nondistended, soft. BS present. Extremities: Warm, dry. Moves all extremities equally. Electrical Mechanic strength, elbow flexion/extension, hip flexion, ankle dorsiflexion/plantarflexion 5/5 without deficit, sensation of soft touch intact in hands and feet without deficit. Principal Diagnosis Odontogenic infection Infectious mononucleosis Discharge Exam General: Awake, conversant Heart: S1, S2/regular rate and rhythm, no murmur rubs or gallops Lungs: Clear to auscultation bilaterally. Normal effort Abdomen: Soft/nontender/nondistended. No hepatosplenomegaly Extremities: No clubbing/cyanosis. No edema Behavior: Appropriate, cooperative Discharge Data Allergies Allergy/AdvReac Type Severity Reaction Status Date / Time lactose AdvReac Intermediate Gastrointestinal Verified 06/15/22 16:59 Upset Consultations 06/15/22 17:02 ED Decision to Admit Stat 06/15/22 20:26 Consult Oromaxillofacial Surgery Routine Procedures Performed Operation Date: 06/16/22 12:20 Actual Procedures p Incision and Drainage Infection(Bilateral) - Parmjit Mitchell DMD s Removal of [place] Teeth(Bilateral) - Parmjit Mitchell DMD Ordered Studies 06/15/22 16:18 CT face [CT facial bones w con] Stat Hospital Course (1) Odontogenic infection of jaw: 21-year-old female who presents with approximately 1 week of worsening right lower jaw pain, and inability to tolerate p.o. since last Thursday. She was seen by ENT who recommended extraction of wisdom teeth for odontogenic infection and medical admission pending surgery tomorrow. Pharyngitis, trismus, fever She came back positive for infectious mononucleosis She was also found to have odontogenic infection related to her wisdom tooth and periodontal abscess She had removal of her wisdom teeth bilaterally by oral maxillofacial surgery 06/16 Deemed stable for discharge today by OMFS Discharge on Augmentin (2) Infectious mononucleosis due to Tyler-Garza virus (EBV): Monospot positive Supportive treatment with Tylenol, fluids Advised to drink plenty of fluids Advised to avoid contact sports in the next 2 weeks Plan Spoke to mother on the phone on 06/16 Cleared the patient for discharge today Total Time Total Time Spent Total Time Spent (In Minutes): 35 Discharge Plan Discharge Items Patient Disposition: Home - Self-Care Reason For Visit: ODONTOGENIC INFECTION Discharge Diagnosis: s/p severe oral infection, Infectious Mononucleosis Condition on Discharge: Fair Activity: Resume your previous activity Lifting: Gradually increase as tolerated Bathing: No limitations Driving/Machine Use: Resume 1 day after discharge Weightbearing: Full weightbearing Non-emergency contact: Surgeon Call non-emergency contact if: your symptoms worsen, your temperature is above 101.5, your wound has increased redness, your wound has increased drainage and your wound pain has increased Follow-up/Referrals: Parmjit Mitchell DMD [Physician] - 06/26/22 1:30 pm [facility] [Primary Care Provider] - Diet: Full liquid and Clear liquid Diet Texture: Easy to Chew Diet Comment: start with clear--full--dental soft Addtl Attending Provider Instructions: ADDITIONAL ACTIVITY RECOMMENDATIONS: * [place] teeth after every meal. It is very important to keep your mouth clean to prevent infection. * Starting tonight rinse with the Peridex as directed then 2 x a day * it is very important to keep well hydrated, this prevents fever and possible dry socket pain SPECIAL CARE INSTRUCTIONS: *It is not uncommon that between day 2-4 that your swelling will be at its worst this is very normal, do not be alarmed. * Keep ice on the side of your face for the next 24 to 36 hours. This will help keep the swelling down. * After 36 hours, apply heat (hot water bottle or heating pad) for the next two days, as often as possible. * Tomorrow start rinsing your mouth with 1/2 teaspoon salt in 8 ounces warm water. This rinse should be used every 4-6 hours. * You may experience slight nausea. To prevent this, never take your medication on an empty stomach. If nauseated, take small sips of winter bigg until you feel better; then you may start on applesauce and toast. * Some swelling is common. It should gradually decrease within 4-5 days. * A certain amount of bleeding is to be expected. It is often possible to control mild oozing by placing folded gauze over the area and biting down for 30 minutes. If you are unable to control excessive bleeding, call Dr Mitchell at [phone] * You may experience some discomfort for a few days. If pain or swelling increases, Call Dr Mitchell * Return to the office for a follow up check up on: SUNDAY JUNE 26, 2022 at 3:30 * office address--[address]. phone # [phone] Pending Studies at Discharge: No Stand-Alone Forms: My [facility], Work/School Release Medications and DC Order Prescriptions: Continued amoxicillin-pot clavulanate 875-125 mg tablet 1 tab PO Q12H Qty: 14 0RF hydrocodone-acetaminophen 5-325 mg tablet 1 tab PO Q4H PRN (Reason: pain) Qty: 10 0RF ondansetron HCl 8 mg tablet 8 mg PO Q8H PRN (Reason: nausea and vomiting) Qty: 10 0RF Discharge Orders: Discharge Order (Routine); Ordered 06/17/22 Ordered By: Roc Ashraf/Other Patient Handouts: [place] Teeth: Removal, Understanding [place] Teeth, [place] Teeth Surgery- Your Recovery, [place] Teeth: Your Treatment Plan Admission Data Admit Date/Time: 06/15/22 16:42 Attending Provider: Roc Aguilar Admit Provider: Michael Alaniz Primary Care Provider: [place],[facility] Other Providers: Michael Alaniz ; Parmjit Mitchell Other Interventions: Discharge Summary Assessment (RN) Last Done: 06/17/22 13:32 Coding Level of Care Code 99093 INP/OBS DISCH >30 MIN Diagnoses Odontogenic infection of jaw M27.2 Infectious mononucleosis due to Tyler-Garza virus (EBV) B27.00
--- NOTE | 2022-06-17 12:58 | Oral/Maxillofacial Progress Nt ---
Date of Service June 17, 2022 Assessment & Plan Admission and Anticipated Discharge Date Admission Date: June 15, 2022 Subjective POST OP NOTE at 24 hours The patient did very well post operatively, healing is excellent. Oral care is good, minimal swelling as expected. Tissue tone =healthy normal tissue No sinus or nerve complications noted Excellent ROM Reviewed oral care Reviewed diet, massage, exercise and continued home/oral care RTC June 26 at 3:30 Overall: Excellent healing from recent oral surgery Results & Data Vital Signs (Past 12 Hours) Vital Signs Temp Pulse Resp BP Pulse Ox O2 Del Method 06/17/22 11:15 36.8 C 61 16 95/61 L 96 Room Air 06/17/22 07:30 36.3 C L 60 16 96/58 L 98 Room Air 06/17/22 04:00 36.6 C 70 16 102/72 97 Room Air PG Care Time/CCT Total # of Minutes Spent Total Time Spent with Patient: Total time spent is greater than 50% in coordination of care (as documented) at patient's floor/unit and/or counseling patient: Coding Level of Care Code None Diagnoses
--- NOTE | 2022-06-18 22:03 | Operative Report ---
PG Post Operative Report Pre & Post Diagnosis Operation Date: 06/16/22 12:20 Pre-Op Diagnosis: Odontogenic infection of jaw Post-Op Diagnosis: Odontogenic infection of jaw impacted/infected partial impacted wisdom # 17,32 D7230 x 2 17 and 32 infectedwisdom teeth # 1,16 D7140 x 2 1 and 16 (please bill patient for $ 85 x 2= $170) Please note patient was admitted on medical service with dehydration, pain, trismus and Dr Mitchell was consulted to treat the odontogenic infection with was caused by the infected wisdom teeth I identified the patient and participated in the time-out.: Yes Procedure Operation Date: 06/16/22 12:20 Actual Procedures p Incision and Drainage Infection(Bilateral) - Parmjit Mitchell DMD s Removal of [place] Teeth(Bilateral) - Parmjit Mitchell DMD Surgeon Parmjit Mitchell DMD Phytopathology Teacher none Estimated Blood Loss 5 Findings Consistent with Post-Op Diagnosis grossly infected wisdom teeth 17 and 32 Specimens none Drains none Anesthesia Type General Complications as a result of severe infection, pain and dehydration Krystyna was admitted through the ER on medical service. I was consulted for evaluation of the oral infection and trismus. Finding demonstrated grossly infected # 17 and 32 with mandibular space infection (bilateral) Indications grossly infected # 17 and 32 with mandibular space infection (bilateral) Description of Procedure Pre-op= impacted and infected partial impacted wisdom teeth # 17,32 infected wisdom teeth # 1,16 Once cleared for surgery general anesthesia was achieved, the eyes were protected by the anesthesia dept criteria.. A time out was take for patient ID, antibiotics, equipment and position verification once all agreed the procedure began. Local anesthesia was given into each area using Marcaine with a vasoconstrictor ( 1.8 ml per site). A throat pack was placed after the oral cavity was irrigated with saline. Once a surgical level of anesthesia was obtained and the local anesthesia was given time for the blocks the surgery was started. I turned my attention to the upper wisdom teeth first. Upper wisdom teeth Simple extraction # 1 and 16 The tooth was visualized, it was close to the sinus and removed with an 81 elevator. Bony margins were trimmed, smoothed and sutured closed with a 2-0 chromic x 2. There was no sinus involvement. Lower wisdom teeth PBI # 17 and 32 (D7230 x 2) The full thick Muco-periosteal flap was made on the external oblique ridge to avoid the lingual nerve. The flap was reflected to expose the impacted tooth. The drill with a round bur was used to remove bone, a fissure bur was used to split the tooth.The lingual plate was protected. The tooth was removed with a 301 elevator, the nerve was intact, there was no bleeding. The bone was trimmed, smoothed and the flap was closed with a few 2-0 chromic sutures. When all the wisdom teeth were removed I inspected the sites to insure all bleeding was controlled. I removed the throat pack and suctioned the throat. Bilateral gauze pressure dressings were placed. All instrument and sponge count was correct. the patient was allowed to awake from the anesthesia. Once full awake the anesthesia tube was removed and the patient was taken to the recovery room with all vital sign stable. The patient tolerated the surgery very well. I will follow the patient in my office, Rx and instructions will be given upon discharge. I attest to the content of the Intraoperative Record and any orders documented therein. Any exceptions are noted below.
== END 2022-06-17 17:44 | disposition home or self-care (01) ==
LOC: 3N 15:28 → ED 15:28 → SUATTDRO 16:42 → 3N 19:52